=== PATIENT | male | born 1950 | race Caucasian/White ===

== ENCOUNTER 2024-08-23 17:49 | Emergency (ER) | payer MEDICAID, MEDICARE ==
[~2024-08-23] VITALS: Ht 180.3 cm; Wt 74.8 kg
[~2024-08-23 17:49] MED LIST: HYDR-3980 PO
[2024-08-23 23:26] VITALS: O2SAT 98
== END 2024-08-24 01:30 | disposition left against medical advice (07) ==
LOC: ER 17:49
DX: R52 Pain, unspecified (principal); Z53.21 Procedure and treatment not carried out due to patient leaving prior to being seen by health care provider
CPT/HCPCS: A4606; A4663